=== PATIENT | male | born 1985 | race Caucasian/White ===

== ENCOUNTER → 2018-10-10 | Outpatient (CLI) | payer OTHER | LOC: FIMAGING 18:26 | PROVIDERS: ATTEND Physician Assistant Medical | DX: R56.9 Unspecified convulsions (principal) ==

== ENCOUNTER → 2018-10-18 | Outpatient (CLI) | payer OTHER ==
--- NOTE | 2018-10-18 14:51 | CPEEG ---
4-HOUR VIDEO EEG. DATE OF STUDY: 10/18/2018 INTERPRETATION: This 4-hour video EEG recording is normal. There were no potentially epileptogenic abnormalities present in the awake or sleep recordings. During the video EEG monitoring session, the patient did not have any clinical events. REPORT: This 4-hour video EEG contains 10 Hz alpha activity over the posterior head regions. There was no abnormal activation at rest, during photic stimulation or hyperventilation. The patient becam e drowsy and fell into sustained sleep during the study. There was no abnormal activation during carisa wsiness, sleep, or during times of arousal. The patient did not have any clinical events during the video EEG monitoring session. /[id number]
== END ==
LOC: FCPNEURO 07:39
PROVIDERS: ATTEND Physician Assistant Medical
DX: R56.9 Unspecified convulsions (principal)